=== PATIENT | female | born 1950 | race Caucasian/White ===

== ENCOUNTER → 2021-05-27 | Outpatient (CLI) | payer OTHER ==
[~2021-05-27] MED LIST: ADULT LOW DOSE81 MG PO; AMBIEN 10 MG TA10 MG PO; B-50 COMPLEX1 EAC1 SL; CLONAZEPAM PO; FIBERCON CHEWA625 MG PO; FISH OIL 1,0001 EAC5 PO; HYDROCODONE PO; LEVOTHROID100 MC1 PO; LEXAPRO 10 MG T10 MG PO; MAGNESIUM GLUC250 MG PO; PRILOSEC 20 MG20 MG PO; PROTONIX40 M2 PO; VITAMIN D1000 UNI1 PO
== END ==
LOC: CAT 09:55
PROVIDERS: ATTEND Internal Medicine
DX: Z13.6 Encounter for screening for cardiovascular disorders (principal); I25.10 Atherosclerotic heart disease of native coronary artery without angina pectoris; E78.00 Pure hypercholesterolemia, unspecified